=== PATIENT | male | born 1950 | race Caucasian/White ===

== ENCOUNTER → 2023-08-22 | Outpatient (CLI) | payer MEDICARE, BC, SELFPAY ==
[2023-08-22 11:39] LABS: Anion Gap 4 (5-15); BUN 21 mg/dL (7-18); Chloride 107 mmol/L (98-107); EST Glomerular Filtration Rate 53 mL/min (>60); Est Glom Filt Rate - Afr Amer 64 mL/min (>60); Glucose 92 mg/dL (74-106); Potassium 4.4 mmol/L (3.5-5.1); Sodium Level 140 mmol/L (136-145)
== END | disposition home or self-care (01) ==
PROVIDERS: PCP Family Medicine; Referring Provider Urology; Visit Provider Urology
DX: N40.1 Benign prostatic hyperplasia with lower urinary tract symptoms (principal)
CPT/HCPCS: 36415; 80048